=== PATIENT | male | born 1995 | race African-American/Black ===

== ENCOUNTER → 2018-09-16 | Outpatient (CLI) | payer OTHER ==
[~2018-09-16] MED LIST: NORCO 325 MG-51 TAB PO
== END ==
LOC: COL.RAD 09-12 14:15
DX: R94.5 Abnormal results of liver function studies (principal)

== ENCOUNTER 2021-04-19 13:24 | Outpatient (RCR) | payer OTHER | END 2021-06-09 | disposition home or self-care (01) | LOC: WSOH | DX: S67.21XA Crushing injury of right hand, initial encounter (principal); Y99.0 Civilian activity done for income or pay; Z79.899 Other long term (current) drug therapy ==